=== PATIENT | male | born 1980 | race Caucasian/White ===

== ENCOUNTER 2021-09-29 18:45 | Emergency (ER) | payer MEDICAID ==
[~2021-09-29] VITALS: Ht 182.9 cm; Wt 104.3 kg
--- NOTE | 2021-09-29 19:00 | NUR ---
ANGELO RA102 "Suicidal thoughts-run into traffic. +Fentanyl 30min LORRY WEIGHER". PT A/OX4. Ambulatory with steady gait. Pt tolerating R/A well with no SOB. Safety 1:[address]
--- NOTE | 2021-09-29 19:39 | NUR ---
LAB AT BEDSIDE
--- NOTE | 2021-09-29 19:45 | NUR ---
URINE SENT TO LAB
[2021-09-29 20:02] LABS: BASOPHILS % (AUTO) 0.7 % (0.0-2.0); EOSINOPHILS % (AUTO) 1.9 % (0.0-6.0); HEMATOCRIT 41 % (39-51); HEMOGLOBIN 13.9 g/dL (13.5-17.5); LYMPHOCYTES # (AUTO) 1.4 K/uL (0.8-4.8); LYMPHOCYTES % (AUTO) 28.4 % (20.0-44.0); MEAN CORPUSCULAR HGB CONC 34 g/dl (31.0-36.0); MEAN CORPUSCULAR VOLUME 89 fL (80-96); MONOCYTES # (AUTO) 0.7 K/uL (0.1-1.30); MONOCYTES % (AUTO) 14.1 % (2.0-12.0); NEUTROPHILS # (AUTO) 2.7 K/uL (1.8-8.9); NEUTROPHILS % (AUTO) 54.9 % (43.0-81.0); PLATELET COUNT (AUTO) 289 K/uL (150-450); RED BLOOD CELL COUNT(AUTO) 4.58 MIL/uL (4.5-6.0)
[2021-09-29 20:03] LABS: CALCIUM, SERUM 8.9 mg/dL (8.5-10.1); CARBON DIOXIDE 28 mmol/L (21-32); CHLORIDE 102 mmol/L (98-107); GLUCOSE 93 mg/dL (74-106); POTASSIUM 3.5 mmol/L (3.5-5.1); SODIUM SERUM 139 mmol/L (136-145); UREA NITROGEN, BLOOD 19 mg/dL (7-18)
[2021-09-29 20:07] LABS: ALANINE AMINOTRANSFERASE 43 U/L (12-78); ALBUMIN 3.6 g/dL (3.4-5.0); ALCOHOL, BLOOD < 3 mg/dL (0-0); ALKALINE PHOSPHATASE 90 U/L (46-116); ASPARTATE AMINOTRANSFERASE 29 U/L (15-37); BILIRUBIN,DIRECT 0.1 mg/dL (0.0-0.2); BILIRUBIN,TOTAL 0.3 mg/dL (0.2-1.0); TOTAL PROTEIN, SERUM 8.4 g/dL (6.4-8.2)
[2021-09-29 20:11] LABS: ACETAMINOPHEN < 0 ug/ml (10-30)
[2021-09-29 20:11] LABS: BILIRUBIN,URINE SMALL (NEGATIVE); COLOR,URINE YELLOW (YELLOW); LEUKOCYTE ESTERASE ,URINE NEGATIVE (NEGATIVE); NITRITE, URINE NEGATIVE (NEGATIVE); PH,URINE 5.5 (5.0-8.0); PROTEIN,URINE TRACE mg/dl (NEGATIVE); UGLUCOSE NEGATIVE (NEGATIVE)
[2021-09-29 20:23] LABS: RBC,URINE 51-80 /HPF (0-2); WBC,URINE 0-2 /HPF (0-3)
[2021-09-29 20:24] LABS: BACTERIA,URINE None seen /HPF (None Seen); MUCUS,URINE Many /LPF (None Seen); SQUAMOUS EPITHELIAL CELL,UR 0-2 /HPF (None Seen)
[2021-09-30] MEDS ORDERED: LORAZEPAM 1 MG TABLET ONE ×2 (03:29→12:12)
[2021-09-30] MEDS ORDERED: LORAZEPAM 1 MG TABLET PO ONE ×2 (03:30→12:30)
--- NOTE | 2021-09-30 03:33 | NUR ---
COVID SWAB DONE AND SENT TO LAB
--- NOTE | 2021-09-30 08:22 | NUR ---
BREAKFAST TRAY PROVIDED. TOLERATED WELL.
--- NOTE | 2021-09-30 10:24 | NUR ---
PATIENT ASLEEP, EASILY AROUSABLE, BREATHING EVEN AND NON LABORED
--- NOTE | 2021-09-30 11:41 | NUR ---
[employer], REID, CALLED AND WAS NOTIFIED THAT PT WAS ACCEPETD TO [facility] NUMBER FOR REPORT [phone] [place] AFTER [address] UNDER THE CARE OF DR. CUADRA
--- NOTE | 2021-09-30 12:21 | NUR ---
CALLED [facility] FOR TRANSPORT TO [facility]. ETA 1400.
[2021-09-30 12:30] VITALS: BP 121/73
[2021-09-30] MEDS ORDERED: ONDANSETRON 4 MG TAB.RAPDIS ONE (12:49)
--- NOTE | 2021-09-30 12:55 | NUR ---
PICKED UP BY TRANSPORT IN STABLE CONDITION
== END 2021-09-30 12:59 ==
LOC: ER 18:50
DX: R45.851 Suicidal ideations (principal); Z59.00 Homelessness unspecified; F15.10 Other stimulant abuse, uncomplicated; F10.10 Alcohol abuse, uncomplicated; Y90.0 Blood alcohol level of less than 20 mg/100 ml; F19.10 Other psychoactive substance abuse, uncomplicated; Z88.0 Allergy status to penicillin; Z20.822 Contact with and (suspected) exposure to COVID-19
CPT/HCPCS: 36415; 80048; 80076; 80143; 80307; 80320; 81001; 85025; 87426; 99285; C9803; Q0162; G0480